=== PATIENT | female | born 1980 ===

== ENCOUNTER 2017-11-04 16:52 | Emergency (ER) | payer OTHER, SELFPAY ==
[~2017-11-04] VITALS: Ht 167.6 cm; Wt 105.7 kg
[~2017-11-04 16:52] MED LIST: CEPH500 PO; CODACE30; DIPH50 PO; FAMO40 PO; IRON; MELA3 PO; METPRE4DP PO; MULVITMINE; OXYACE10 PO; PENVK500; PENVK500 PO
[2017-11-04] MEDS ORDERED: LOSA50 PO (17:13)
[2017-11-04] MEDS ORDERED: AMLO5 PO (17:13)
[2017-11-04] MEDS ORDERED: CYCL10 PO (17:14)
[2017-11-04] MEDS ORDERED: Adipex-P37.5 MG (17:14)
[2017-11-04] MEDS ORDERED: Adipex-P37.5 M1 PO (17:14)
[2017-11-04 17:54] LABS: BASOPHILS ABSOLUTE AUTO 0.05 K/mm3 (0.00-0.23); BASOPHILS PERCENT AUTO 1 % (0-2); EOSINOPHILS ABSOLUTE AUTO 0.05 K/mm3 (0.00-0.68); EOSINOPHILS PERCENT AUTO 1 % (0-6); Hematocrit 41.3 % (33.0-51.0); Hemoglobin 13.4 g/dL (11.5-16.0); IMMATURE GRAN ABSOLUTE AUTO 0.03 K/mm3 (0.00-0.10); IMMATURE GRAN PERCENT AUTO 0 % (0-1); LYMPHOCYTES ABSOLUTE AUTO 2.76 K/mm3 (0.84-5.20); LYMPHOCYTES PERCENT AUTO 30 % (21-46); MONOCYTES PERCENT AUTO 7 % (4-13); Mean Corpuscular HGB 27.6 pg (26.0-34.0); Mean Corpuscular HGB Conc 32.4 g/dL (31.5-36.5); Mean Corpuscular Volume 85 fL (80-100); Mean Platelet Volume 9.1 fL (9.1-12.4); NEUTROPHILS ABSOLUTE AUTO 5.65 K/mm3 (1.96-9.15); NEUTROPHILS PERCENT AUTO 62 % (41-73); Platelet Count 312 K/mm3 (150-400); RDW Coefficient Variation 13.2 % (11.7-14.2); RDW Standard Deviation 41.7 fL (35.1-46.3); Red Blood Cell Count 4.86 M/mm3 (3.80-5.20); White Blood Cell Count 9.14 K/mm3 (4.00-11.30)
[2017-11-04 18:13] LABS: Anion Gap 9 mmol/L (6-16); Blood Urea Nitrogen 10 mg/dL (8-24); Bun/Creatinine Ratio 14.9 (12.0-20.0); CO2, Blood 21 mmol/L (21-32); Calcium, Blood 8.9 mg/dL (8.5-10.1); Chloride, Blood 107 mmol/L (98-108); Creatinine, Blood 0.67 mg/dL (0.40-1.00); Glomerular Filtration Rate >60 (60-); Glucose, Blood 74 mg/dL (70-99); Potassium, Blood 3.8 mmol/L (3.5-5.5); Sodium, Blood 137 mmol/L (136-145)
[2017-11-04] MEDS ORDERED: PRAHYD1AE TOP (19:14)
[2017-12-29] MEDS ORDERED: MAGSULP (11:46)
[2017-12-29] MEDS ORDERED: MELA3 (11:46)
== END 2017-11-04 19:27 | disposition home or self-care (01) ==
LOC: ER 16:52
PROVIDERS: Emergency Medicine
DX: K64.8 Other hemorrhoids (principal); K62.89 Other specified diseases of anus and rectum; Z91.040 Latex allergy status; Z79.899 Other long term (current) drug therapy
CPT/HCPCS: 36415; 80048; 85025; 99283

== ENCOUNTER → 2018-01-14 | Outpatient (CLI) | payer OTHER, SELFPAY ==
[~2018-01-14] MED LIST changes: +AMLO5 PO; +Adipex-P37.5 M1 PO; +Adipex-P37.5 MG; +CYCL10 PO; +LOSA50 PO; +MAGSULP; +MELA3; +PRAHYD1AE TOP
== END | disposition home or self-care (01) ==
LOC: OLS 14:12 → LAB SHORT 14:12
DX: N39.3 Stress incontinence (female) (male) (principal); N81.2 Incomplete uterovaginal prolapse; N81.6 Rectocele; R33.9 Retention of urine, unspecified
CPT/HCPCS: 87086

== ENCOUNTER → 2018-09-09 | Outpatient (CLI) | payer OTHER ==
[2018-09-09 12:55] LABS: Influenza A Negative (NEGATIVE); Influenza B Negative (NEGATIVE)
== END | disposition home or self-care (01) ==
LOC: LAB 12:25 → LAB SHORT 12:25
PROVIDERS: Hospitalist
DX: R50.9 Fever, unspecified (principal)
CPT/HCPCS: 87804

== ENCOUNTER → 2018-12-22 | Outpatient (CLI) | payer OTHER ==
[2018-12-24 15:06] LABS: HPV 16 Negative (Negative); HPV 18 Negative (Negative); HPV OTHER HR TYPES Negative (Negative)
== END | disposition home or self-care (01) ==
LOC: LAB 17:40 → LAB SHORT 17:40
PROVIDERS: Obstetrics & Gynecology Gynecology
DX: Z12.4 Encounter for screening for malignant neoplasm of cervix (principal)
CPT/HCPCS: 87624; G0123

== ENCOUNTER 2019-02-03 05:55 | Day surgery (SDC) | payer OTHER ==
[~2019-02-03] VITALS: Ht 167.6 cm; Wt 82.8 kg
[~2019-02-03 05:55] MED LIST changes: +ALPR.25 PO; +DILTIAZEM PR; +GABA600 PO; +MAGNESIUM PO; +PETROLATUM PR; +[UNRECOGNIZED DRUG - CODE] TOP
--- NOTE | 2019-02-03 06:53 | NUR ---
Ambulatory in Day Surgery History, Chart, Medications and Allergies reviewed before start of procedure. Lungs clear T/O to Auscultation. Patient confirms NPO status and agrees with scheduled surgery.
[2019-02-03 15:22] LABS: BASOPHILS ABSOLUTE AUTO 0.02 K/mm3 (0.00-0.23); BASOPHILS PERCENT AUTO 0 % (0-2); EOSINOPHILS PERCENT AUTO 0 % (0-6); Hematocrit 34.4 % (33.0-51.0); Hemoglobin 10.8 g/dL (11.5-16.0); IMMATURE GRAN ABSOLUTE AUTO 0.05 K/mm3 (0.00-0.10); IMMATURE GRAN PERCENT AUTO 0 % (0-1); LYMPHOCYTES ABSOLUTE AUTO 0.49 K/mm3 (0.84-5.20); LYMPHOCYTES PERCENT AUTO 3 % (21-46); MONOCYTES ABSOLUTE AUTO 0.47 K/mm3 (0.16-1.47); MONOCYTES PERCENT AUTO 3 % (4-13); Mean Corpuscular HGB 26.3 pg (26.0-34.0); Mean Corpuscular HGB Conc 31.4 g/dL (31.5-36.5); Mean Corpuscular Volume 84 fL (80-100); Mean Platelet Volume 10.1 fL (9.1-12.4); NEUTROPHILS ABSOLUTE AUTO 14.47 K/mm3 (1.96-9.15); NEUTROPHILS PERCENT AUTO 93 % (41-73); Platelet Count 264 K/mm3 (150-400); RDW Coefficient Variation 15.5 % (11.7-14.2); RDW Standard Deviation 47.8 fL (35.1-46.3); Red Blood Cell Count 4.11 M/mm3 (3.80-5.20)
--- NOTE | 2019-02-03 16:02 | NUR ---
02/03/19 1602 Heather Collins CHART AUDITS, VERIFICATIONS.
--- NOTE | 2019-02-03 16:19 | NUR ---
SHIFT SUMMARY S/P VAG HYSTER, A&P, SLING. RAMY PAD IN PLACE, SCANT DRAINAGE FROM OR PAD. VAG PACKING IN PLACE. PT AAOX4, CALLING APPROPRIETLY.VSS >95% ON RA. PT C/O OF PRESSURE IN ABDOMEN AND PAIN. MORPHINE APPLIANCE COUNSELOR IN PLACE MEDICATED WITH PO X1 FOR BREAKTHROUGH PAIN. ADEN IN PLACE, PATENT AND DRAINING. LR INFUSING AT 125. AMBULATED TO HALLWAY AND SAT IN CHAIR FOR 15MIN. TOLERATED FAIR. SITTING UP IN BED, CALL LIGHT IN REACH. TOLERATING PO WELL, NO REPORTS OF NAUSEA.
--- NOTE | 2019-02-04 04:30 | NUR ---
VAGINAL PACKING AND ADEN DC'D AT THIS TIME. PT TOLERATED WELL, NO ACTIVE BLEEDING. WILL CTM
--- NOTE | 2019-02-04 06:06 | NUR ---
SUMMARY: PT IS POD1 LAVH. DOING WELL, NO ACUTE CHANGE TONIGHT. PAIN WELL MANAGED WITH 2 NARCO Q4. SCANT VAGINAL BLEED, RAMY PAD CHANGED X1 WITH ADEN AND PACKING DC, PT DID OWN RAMY CARE.PT WALKED HALLS THIS AM. EATING AND DRINKING, NO NAUSEA. VSS, WILL CTM AND REPORT TO DAY RN
[2019-02-04] MEDS ORDERED: Norco 5-325 Ta1 EACH PO (08:44)
--- NOTE | 2019-02-04 11:13 | NUR ---
DISCHARGE PT EDUCATED ON AND RECEIVED PRINTED DC INSTRUCTIONS AND VERBALIZED AN UNDERSTANDING. ADEN CATH PLACED PT UNABLE TO VOID. TAUGHT PT CATH CARE AND SENT WITH EXTRA SUPPLIES. PT VERB AN UNDERSTANDING. PT EXPECTED TO RETURN TO DR OFFICE ON THURSDAY TO HAVE CATHETER REMOVED. PT PAIN MANAGED, YARI REG DIET, AND AMBULATING HALLWAY. HARD RX FOR NORCO GIVEN TO PT . IV DC'D. PT LEFT WITH ALL PERSONAL BELONGINGS WITH DAUGHTER AT SIDE.
== END 2019-02-04 11:11 | disposition home or self-care (01) ==
LOC: ORSCMMR 05:55 → ORD 07:30 → ORSCMMR 07:30 → ORD 09:00 → SURS 11:00 → ORSCMMR 23:14 → SURS 23:14 → ORSCMMR 02-04 11:11
PROVIDERS: Obstetrics & Gynecology Gynecology
PROC: 0UT97ZZ Resection of Uterus, Via Natural or Artificial Opening (ICD-10-PCS; principal; 2019-02-03 07:30)
PROC: 0TSD0ZZ Reposition Urethra, Open Approach (ICD-10-PCS; principal; 2019-02-03 07:30)
PROC: 0JQC0ZZ Repair Pelvic Region Subcutaneous Tissue and Fascia, Open Approach (ICD-10-PCS; principal; 2019-02-03 07:30)
PROC: 0TJB8ZZ Inspection of Bladder, Via Natural or Artificial Opening Endoscopic (ICD-10-PCS; principal; 2019-02-03 07:30)
DX: N39.3 Stress incontinence (female) (male) (principal); N81.2 Incomplete uterovaginal prolapse; N81.10 Cystocele, unspecified; N81.6 Rectocele; J45.909 Unspecified asthma, uncomplicated; Z79.899 Other long term (current) drug therapy
CPT/HCPCS: 36415; 85025; 88307; A9270-GY; C1771; J0690; J1100; J1885; J2250; J2270; J2405; J2704; J2765; J3010; J7120

== ENCOUNTER → 2021-03-06 | Outpatient (CLI) | payer OTHER ==
[~2021-03-06] MED LIST changes: +Norco 5-325 Ta1 EACH PO
== END ==
LOC: LAB 13:36 → LAB SHORT 13:36
DX: E06.9 Thyroiditis, unspecified (principal); Z91.040 Latex allergy status
CPT/HCPCS: 84439; 84443; 84481

== ENCOUNTER 2022-12-28 17:07 | Emergency (ER) | payer OTHER ==
[~2022-12-28] VITALS: Ht 167.6 cm; Wt 75.8 kg
[2022-12-28 17:48] LABS: BASOPHILS ABSOLUTE AUTO 0.05 K/mm3 (0.00-0.23); BASOPHILS PERCENT AUTO 1 % (0-2); EOSINOPHILS ABSOLUTE AUTO 0.07 K/mm3 (0.00-0.68); EOSINOPHILS PERCENT AUTO 1 % (0-6); Hematocrit 40.5 % (33.0-51.0); Hemoglobin 13.3 g/dL (11.5-16.0); IMMATURE GRAN ABSOLUTE AUTO 0.04 K/mm3 (0.00-0.10); IMMATURE GRAN PERCENT AUTO 1 % (0-1); LYMPHOCYTES ABSOLUTE AUTO 2.41 K/mm3 (0.84-5.20); LYMPHOCYTES PERCENT AUTO 28 % (21-46); MONOCYTES ABSOLUTE AUTO 0.49 K/mm3 (0.16-1.47); MONOCYTES PERCENT AUTO 6 % (4-13); Mean Corpuscular HGB 29.1 pg (26.0-34.0); Mean Corpuscular HGB Conc 32.8 g/dL (31.5-36.5); Mean Corpuscular Volume 89 fL (80-100); Mean Platelet Volume 9.4 fL (9.1-12.4); NEUTROPHILS ABSOLUTE AUTO 5.57 K/mm3 (1.96-9.15); NEUTROPHILS PERCENT AUTO 65 % (41-73); Platelet Count 270 K/mm3 (150-400); RDW Coefficient Variation 12.5 % (11.7-14.2); RDW Standard Deviation 41.1 fL (35.1-46.3); Red Blood Cell Count 4.57 M/mm3 (3.80-5.20); White Blood Cell Count 8.63 K/mm3 (4.00-11.30)
[2022-12-28 18:05] LABS: Albumin, Blood 3.9 g/dL (3.4-5.0); Albumin/Globulin Ratio 1.1 (0.8-1.8); Bilirubin, Total 1.4 mg/dL (0.1-1.0); Bun/Creatinine Ratio 20.6 (12.0-20.0); Calcium, Blood 8.9 mg/dL (8.5-10.1); Creatinine, Blood 0.63 mg/dL (0.40-1.00); Globulin, Blood 3.4 g/dL (2.2-4.0); Potassium, Blood 3.9 mmol/L (3.5-5.5); Total Protein, Blood 7.3 g/dL (6.4-8.2)
[2022-12-28 19:00] VITALS: BP 117/76
[2022-12-28] MEDS ORDERED: ONDA4 PO (19:28)
== END 2022-12-28 19:29 | disposition home or self-care (01) ==
LOC: ER 17:07
PROVIDERS: Emergency Medicine
DX: R10.10 Upper abdominal pain, unspecified (principal); Z87.891 Personal history of nicotine dependence
CPT/HCPCS: 36415; 74177; 76705; 80053; 83690; 84484; 85025; 93005; 93010; 96361; 96374-59; 96375; 96376; 99284-25; A9270; J1170; J2405; J7030; Q9967

== ENCOUNTER → 2025-08-08 | Outpatient (CLI) | payer OTHER ==
[~2025-08-08] MED LIST changes: +ONDA4 PO
[2025-08-08 20:08] LABS: BASOPHILS ABSOLUTE AUTO 0.05 K/mm3 (0.00-0.23); BASOPHILS PERCENT AUTO 1 % (0-2); EOSINOPHILS ABSOLUTE AUTO 0.05 K/mm3 (0.00-0.68); EOSINOPHILS PERCENT AUTO 1 % (0-6); Hematocrit 40.0 % (33.0-51.0); Hemoglobin 13.3 g/dL (11.5-16.0); IMMATURE GRAN ABSOLUTE AUTO 0.05 K/mm3 (0.00-0.10); IMMATURE GRAN PERCENT AUTO 1 % (0-1); LYMPHOCYTES ABSOLUTE AUTO 2.44 K/mm3 (0.84-5.20); LYMPHOCYTES PERCENT AUTO 32 % (21-46); MONOCYTES ABSOLUTE AUTO 0.64 K/mm3 (0.16-1.47); MONOCYTES PERCENT AUTO 8 % (4-13); Mean Corpuscular HGB Conc 33.3 g/dL (31.5-36.5); Mean Corpuscular Volume 90 fL (80-100); NEUTROPHILS ABSOLUTE AUTO 4.49 K/mm3 (1.96-9.15); NEUTROPHILS PERCENT AUTO 58 % (41-73); NRBC ABSOLUTE 0.00 K/mm3 (0.00-0.02); NRBC Auto 0.0 /100 WBC (0.0-0.2); Platelet Count 294 K/mm3 (150-400); RDW Coefficient Variation 12.8 % (11.7-14.2); RDW Standard Deviation 41.7 fL (35.1-46.3)
[2025-08-09 13:02] LABS: Alanine Aminotransfer (ALT/SGP 32.0 U/L (12-78); Albumin, Blood 3.9 g/dL (3.4-5.0); Albumin/Globulin Ratio 1.3 (0.8-1.8); Anion Gap 7.0 mmol/L (3-11); Aspartate Aminotrans (AST/SGOT 24.0 U/L (12-37); Bilirubin, Total 0.6 mg/dL (0.1-1.0); Blood Urea Nitrogen 13.0 mg/dL (8-24); CO2, Blood 26.0 mmol/L (21-32); Calcium, Blood 8.6 mg/dL (8.5-10.1); Chloride, Blood 107.0 mmol/L (98-108); Creatinine, Blood 0.65 mg/dL (0.40-1.00); Follicle Stimulating Hormone 4.5 mIU/ml; Globulin, Blood 2.9 g/dL (2.2-4.0); Glucose, Blood 88.0 mg/dL (70-99); Potassium, Blood 3.8 mmol/L (3.5-5.5); Sodium, Blood 136.0 mmol/L (136-145); Thyroid Stimulating Hormone 0.895 uIU/mL (0.360-4.800); Total Protein, Blood 6.8 g/dL (6.4-8.2)
== END | disposition home or self-care (01) ==
LOC: LAB SHORT 20:01 → LAB 20:01
PROVIDERS: Hospitalist
DX: N95.1 Menopausal and female climacteric states (principal); I10 Essential (primary) hypertension
CPT/HCPCS: 80053; 83001; 84443; 85025

== ENCOUNTER 2025-08-12 15:07 | Emergency (ER) | payer OTHER ==
[~2025-08-12] VITALS: Ht 162.6 cm; Wt 90.7 kg
[2025-08-12 15:26] VITALS: BP 145/91
[2025-08-12] MEDS ORDERED: Lidocaine 4% 1 Patch TOP ONE (15:30)
[2025-08-12] MEDS ORDERED: Ketorolac Tromethamine 15mg Vial IM ONE (15:35)
[2025-08-12] MEDS ORDERED: ACET500 PO (16:37)
[2025-08-12] MEDS ORDERED: LIDO700A20 TOP (16:37)
== END 2025-08-12 17:08 | disposition home or self-care (01) ==
LOC: ER 15:07
DX: M25.511 Pain in right shoulder (principal)
CPT/HCPCS: 96372; 99283-25; A9270; J1885